=== PATIENT | male | born 1955 | race Caucasian/White ===

== ENCOUNTER 2023-03-07 20:43 | Inpatient (IN) | payer MEDICARE, OTHER ==
[2023-03-07 21:06] LABS: #Eosinphils 0.2 thou/uL (0.0-0.7); #Monocytes 0.7 thou/uL (0.11-0.59); #Neutrophils 6.2 thou/uL (1.40-6.50); %Basophils 0.5 % (0.0-1.0); %Eosinophils 1.8 % (0.0-10.0); %Lymphocytes 18.4 % (21.0-51.0); %Monocytes 7.6 % (0.0-10.0); %Neutrophils 71.5 % (42.0-75.0); Hemoglobin 15.7 g/dL (14.0-18.0); Mean Corpuscular HGB CONC 32.8 g/dL (32.0-36.0); Mean Corpuscular Volume 85.4 fl (78.0-98.0); Mean Platelet Volume 9.9 fL (7.4-10.4); Platelet Count 146 10x3/uL (130-400); RBC Distribution Width 13.8 % (11.5-14.5); Red Blood Cell (RBC) Count 5.61 mill/uL (4.70-6.10); White Blood Cell (WBC) Count 8.7 10x3/uL (4.8-10.8)
[2023-03-07 21:30] LABS: ALT (SGPT) Less than 7 U/L (8-55); AST (SGOT) 15 U/L (5-34); Albumin 4.5 g/dL (3.4-4.8); Alkaline Phosphatase 79 U/L (40-110); Anion Gap 16 mmol/L (10-20); BUN (Urea Nitrogen) 20 mg/dL (8.4-25.7); Bilirubin, Total 0.6 mg/dL (0.2-1.2); Calc. Creatinine Clearance 0 mL/min (70-130); Calcium 9.8 mg/dL (7.8-10.44); Carbon Dioxide 22 mmol/L (23-31); Chloride 108 mmol/L (98-107); Estimated GFR 46; Globulin 2.9 g/dL (2.4-3.5); Glucose 148 mg/dL (80-115); Lipase 8 U/L (8-78); Potassium 4.2 mmol/L (3.5-5.1); Protein, Total 7.4 g/dL (5.8-8.1); Sodium 142 mmol/L (136-145)
[2023-03-07 21:49] LABS: CKMB 1.9 ng/mL (0-6.6)
[2023-03-08] MEDS ORDERED: Aspirin Chewable 81 MG TAB ONE (00:30)
[2023-03-08 01:28] LABS: Troponin I 0.097 ng/mL (< 0.028)
[2023-03-08 02:50] VITALS: BMI 26.4
[2023-03-08 04:54] LABS: Cardiac Risk 4.2 (Less than 4.5)
[2023-03-08 04:57] LABS: Troponin I 0.121 ng/mL (< 0.028)
[2023-03-08] MEDS ORDERED: Aspirin 325 mg Enteric Coated Tablet PO SCH (09:00)
[2023-03-08] MEDS ORDERED: Nitroglycerin 0.4 MG TAB (25 Tab Bottle) SL PRN (09:04)
[2023-03-08] MEDS: Sodium Chloride 0.9% 1,000 ML IV SCH ×2 (10:49→23:22)
[2023-03-08] MEDS: Carbidopa/Levodopa 25-100 mg Tablet PO SCH ×2 (14:29→20:10)
[2023-03-08] MEDS ORDERED: Carbidopa/Levodopa 25-100 mg Tablet PO SCH (15:00)
[2023-03-08] MEDS: Atorvastatin Calcium 40 MG TAB PO SCH (20:10)
[2023-03-08] MEDS: Metoprolol Tartrate 25 MG TAB PO SCH (20:10)
[2023-03-09 07:55] LABS: Anion Gap 15 mmol/L (10-20); BUN (Urea Nitrogen) 16 mg/dL (8.4-25.7); Calc. Creatinine Clearance 65 mL/min (70-130); Calcium 8.9 mg/dL (7.8-10.44); Carbon Dioxide 18 mmol/L (23-31); Chloride 112 mmol/L (98-107); Estimated GFR 62; Glucose 93 mg/dL (80-115); Potassium 4.1 mmol/L (3.5-5.1); Sodium 141 mmol/L (136-145)
[2023-03-09] MEDS: Metoprolol Tartrate 25 MG TAB PO SCH ×2 (09:59→21:01)
[2023-03-09] MEDS: Finasteride 5 MG TAB PO SCH (09:59)
[2023-03-09] MEDS: Carbidopa/Levodopa 25-100 mg Tablet PO SCH ×3 (09:59→21:01)
[2023-03-09] MEDS ORDERED: Iopamidol 370 76% 100 ML VIAL ONE (10:20)
[2023-03-09] MEDS: Sodium Chloride 0.9% 1,000 ML IV SCH (14:28)
[2023-03-09] MEDS: Apixaban 5 MG TAB PO SCH (21:01)
[2023-03-09] MEDS: Atorvastatin Calcium 40 MG TAB PO SCH (21:01)
[2023-03-10 04:13] LABS: #Basophils 0.1 thou/uL (0.0-0.2); #Eosinphils 0.2 thou/uL (0.0-0.7); #Monocytes 0.7 thou/uL (0.11-0.59); #Neutrophils 3.9 thou/uL (1.40-6.50); %Basophils 0.8 % (0.0-1.0); %Eosinophils 3.4 % (0.0-10.0); %Lymphocytes 23.7 % (21.0-51.0); %Monocytes 10.6 % (0.0-10.0); %Neutrophils 61.2 % (42.0-75.0); Mean Corpuscular HGB CONC 33.2 g/dL (32.0-36.0); Mean Corpuscular Hemoglobin 28.5 pg (27.0-31.0); Mean Platelet Volume 10.4 fL (7.4-10.4); Platelet Count 133 10x3/uL (130-400); RBC Distribution Width 14.3 % (11.5-14.5); Red Blood Cell (RBC) Count 4.56 mill/uL (4.70-6.10); White Blood Cell (WBC) Count 6.4 10x3/uL (4.8-10.8)
[2023-03-10 04:34] LABS: Anion Gap 12 mmol/L (10-20); BUN (Urea Nitrogen) 18 mg/dL (8.4-25.7); Calc. Creatinine Clearance 66 mL/min (70-130); Calcium 8.3 mg/dL (7.8-10.44); Carbon Dioxide 19 mmol/L (23-31); Chloride 114 mmol/L (98-107); Estimated GFR 62; Glucose 110 mg/dL (80-115); Sodium 141 mmol/L (136-145)
[2023-03-10] MEDS: Carbidopa/Levodopa 25-100 mg Tablet PO SCH ×3 (08:43→20:49)
[2023-03-10] MEDS: Finasteride 5 MG TAB PO SCH (08:43)
[2023-03-10] MEDS: Metoprolol Tartrate 25 MG TAB PO SCH ×2 (08:43→20:49)
[2023-03-10] MEDS: Apixaban 5 MG TAB PO SCH ×2 (08:43→20:49)
[2023-03-10] MEDS: Sodium Chloride 0.9% 1,000 ML IV SCH (14:38)
[2023-03-10] MEDS: Atorvastatin Calcium 40 MG TAB PO SCH (20:49)
[2023-03-11] MEDS: Finasteride 5 MG TAB PO SCH (08:23)
[2023-03-11] MEDS: Carbidopa/Levodopa 25-100 mg Tablet PO SCH (08:23)
[2023-03-11] MEDS: Apixaban 5 MG TAB PO SCH (08:23)
[2023-03-11] MEDS: Metoprolol Tartrate 25 MG TAB PO SCH (08:23)
[2023-03-11 11:34] VITALS: BP 140/84; TEMP 97.2
== END 2023-03-11 12:03 | disposition home or self-care (01) | DRG 299 ==
LOC: ERS 20:43 → 2NO 03-08 00:05 → OBSVTOIN 03-08 09:09
PROVIDERS: ADMIT Internal Medicine; ATTEND Internal Medicine
DX: I82.412 Acute embolism and thrombosis of left femoral vein (principal); I26.99 Other pulmonary embolism without acute cor pulmonale; N17.9 Acute kidney failure, unspecified; I82.432 Acute embolism and thrombosis of left popliteal vein; I82.442 Acute embolism and thrombosis of left tibial vein; I08.3 Combined rheumatic disorders of mitral, aortic and tricuspid valves; N18.2 Chronic kidney disease, stage 2 (mild); E78.5 Hyperlipidemia, unspecified; G20 Parkinson's disease; I12.9 Hypertensive chronic kidney disease with stage 1 through stage 4 chronic kidney disease, or unspecified chronic kidney disease; Z88.6 Allergy status to analgesic agent; Z91.013 Allergy to seafood; Z85.528 Personal history of other malignant neoplasm of kidney; Z82.49 Family history of ischemic heart disease and other diseases of the circulatory system; Z79.899 Other long term (current) drug therapy
CPT/HCPCS: 36415; 71045; 71275; 80048; 80053; 80061; 82553; 83690; 84484; 85025; 93005; 93306; 94760; 96372; G0378; J1650; J7050; Q9967

== ENCOUNTER 2023-11-07 11:22 | Day surgery (SDC) | payer MEDICARE, OTHER ==
[2023-11-07 12:56] LABS: #Basophils 0.1 thou/uL (0.0-0.2); #Eosinphils 0.1 thou/uL (0.0-0.7); #Monocytes 0.4 thou/uL (0.11-0.59); #Neutrophils 6.8 thou/uL (1.40-6.50); %Basophils 0.6 % (0.0-1.0); %Eosinophils 1.2 % (0.0-10.0); %Lymphocytes 11.7 % (21.0-51.0); %Monocytes 4.7 % (0.0-10.0); %Neutrophils 81.7 % (42.0-75.0); Hematocrit 45.8 % (42.0-52.0); Hemoglobin 15.8 g/dL (14.0-18.0); Mean Corpuscular HGB CONC 34.5 g/dL (32.0-36.0); Mean Corpuscular Volume 86.9 fl (78.0-98.0); Mean Platelet Volume 9.6 fL (7.4-10.4); Platelet Count 165 10x3/uL (130-400); RBC Distribution Width 13.2 % (11.5-14.5); Red Blood Cell (RBC) Count 5.27 mill/uL (4.70-6.10); White Blood Cell (WBC) Count 8.3 10x3/uL (4.8-10.8)
[2023-11-07] MEDS ORDERED: Bacitracin Zinc Ointment 30 gm TUBE ONE (13:14)
[2023-11-07] MEDS ORDERED: Betamet Acet/Betamet Na Ph 30 MG/5 ML VIAL ONE (13:14)
[2023-11-07] MEDS ORDERED: Bupivacaine PF 0.5% 30 ML VIAL ONE (13:15)
[2023-11-07 13:26] LABS: Anion Gap 9 mmol/L (10-20); BUN (Urea Nitrogen) 19 mg/dL (8.4-25.7); Carbon Dioxide 26 mmol/L (23-31); Chloride 109 mmol/L (98-107); Sodium 140 mmol/L (136-145)
[2023-11-07 13:27] LABS: Calc. Creatinine Clearance 0 mL/min (70-130); Calcium 9.6 mg/dL (7.8-10.44); Estimated GFR 63; Glucose 114 mg/dL (80-115)
[2023-11-07] MEDS ORDERED: CEFAZOLIN 2 GM VIAL ONE (13:32)
[2023-11-07] MEDS ORDERED: Sodium Chloride 0.9% 100 ML ONE (13:33)
[2023-11-07] MEDS ORDERED: PROPOFOL 20 ML ONE (13:55)
[2023-11-07] MEDS ORDERED: fentaNYL 50 mcg/mL 1 mL Vial ONE (13:55)
== END 2023-11-07 15:30 | disposition home or self-care (01) ==
LOC: SDC 11:22
PROVIDERS: ATTEND Orthopaedic Surgery Hand Surgery
PROC: 0PBV0ZX Excision of Left Finger Phalanx, Open Approach, Diagnostic (ICD-10-PCS; principal; 2023-11-07)
PROC: 0RCX0ZZ Extirpation of Matter from Left Finger Phalangeal Joint, Open Approach (ICD-10-PCS; 2023-11-07)
DX: T85.848D Pain due to other internal prosthetic devices, implants and grafts, subsequent encounter (principal); S63.092D Other subluxation of left wrist and hand, subsequent encounter; S61.209D Unspecified open wound of unspecified finger without damage to nail, subsequent encounter; T81.89XD Other complications of procedures, not elsewhere classified, subsequent encounter; M65.352 Trigger finger, left little finger; L08.9 Local infection of the skin and subcutaneous tissue, unspecified; J45.909 Unspecified asthma, uncomplicated; E78.5 Hyperlipidemia, unspecified; I10 Essential (primary) hypertension; M20.032 Swan-neck deformity of left finger(s); M24.542 Contracture, left hand; M19.90 Unspecified osteoarthritis, unspecified site; G43.909 Migraine, unspecified, not intractable, without status migrainosus; Z79.899 Other long term (current) drug therapy; Z88.6 Allergy status to analgesic agent; Z98.890 Other specified postprocedural states; X58.XXXA Exposure to other specified factors, initial encounter
CPT/HCPCS: 11044; 20240; 20680; 73140; 80048; 85025; 87070; 87075; 87076; 87077; 87186; 87205; 93005; J3010; 93010; J0702; J2704; J3490; S0020

== ENCOUNTER 2024-05-30 08:19 | Outpatient (CLI) | payer OTHER | END 2024-05-30 08:20 | disposition home or self-care (01) | LOC: BICRAD 08:19 | PROVIDERS: ATTEND Physician Assistant | DX: M48.02 Spinal stenosis, cervical region (principal); M47.812 Spondylosis without myelopathy or radiculopathy, cervical region; Z98.1 Arthrodesis status | CPT/HCPCS: 72040 ==